=== PATIENT | female | born 1980 | race Caucasian/White ===

== ENCOUNTER 2017-03-18 15:09 | Observation (INO) | payer BC ==
--- NOTE | ~2017-03-18 | HP ---
History And Physical [place] [id number] [facility] [place]. [address] NAME: AUSTIN PATE : 78 STATUS : ADM Julisa PAT#: [id number] AGE: 36 ADM/REG DATE : 03/18/17 MR#: [id number] REPORT SERV DATE: 03/19/17 DICTATED BY: RUBY ELIZABETH II DATE: 03/18/17 REPORT STATUS : Draft TRANSCRIBED BY: MODL DATE: 03/18/17 DATE OF ADMISSION: 03/18/2017 CHIEF COMPLAINT: Bradycardia and hypotension prior to surgery and mild hypoxia. HISTORY OF PRESENT ILLNESS: The patient is a 36-year-old female with a history of PCOS, morbid obesity, hypertension, hyperlipidemia, and fibromyalgia who originally presented to [facility] for what sounds like a shoulder surgery. She was going under induction and intubated, when she was set up for positioning and her heart rate dropped and became hypotensive, so the surgery was aborted. Her heart rate and blood pressure quickly resumed to within normal limits, but she was brought to the ER. In the ER, she recovered well, however, was noted to be about 89% on room air. A chest x-ray only showed significantly elevated right hemidiaphragm with shallow inspiration and adjacent atelectasis. She was complaining of some shortness of breath and so a CTA was done, which showed right lower lobe atelectasis related to small lung volumes and right diaphragmatic eventration. No pulmonary embolism. The Hospitalist Service was consulted for observation. Currently, the patient is difficult to arouse, but she just received some Ativan and her at bedside saying that she had, otherwise, been doing well without any complaints. REVIEW OF SYSTEMS: Otherwise, unobtainable due to sedated state. PAST MEDICAL HISTORY: 1. Polycystic ovarian syndrome. 2. Hypertension. 3. Hyperlipidemia. 4. Morbid obesity. 5. Fibromyalgia. 6. Chronic migraines. 7. Suprascapular neuropathy. PAST SURGICAL HISTORY: Left knee surgery, recently; lumbar fusion, 05/22/2014. SOCIAL HISTORY: Denies any alcohol, tobacco, or drug use. She is and lives with her . FAMILY HISTORY: Hypertension in her mother, otherwise, unremarkable. HOME MEDICATIONS: Klonopin, hydrocodone, hyoscyamine, Synthroid, Lyrica, metformin, methocarbamol, Zofran, Pristiq, ProAir, and valsartan. PHYSICAL EXAMINATION: VITAL SIGNS: Blood pressure 119/72, temperature 98.2, pulse 82, O2 saturation 98% on 2 liters, and respirations 15. GENERAL: The patient is somnolent, fairly sedated, difficult to arouse, in no acute History And Physical [address] [address] NAME: AUSTIN PATE : 78 STATUS : ADM Julisa PAT#: [id number] AGE: 36 ADM/REG DATE : 03/18/17 MR#: [id number] REPORT SERV DATE: 03/19/17 DICTATED BY: RUBY ELIZABETH II DATE: 03/18/17 REPORT STATUS : Draft TRANSCRIBED BY: DAYAMI DATE: 03/18/17 distress. NECK: Neck is supple and nontender. No lymphadenopathy or thyromegaly. HEENT: Moist mucous membranes. Pupils are equal, round, and reactive to light. Conjunctivae are clear. RESPIRATORY: Lungs are clear to auscultation bilaterally. No wheezes, rhonchi, or rales. CARDIOVASCULAR: Regular rate and rhythm. No murmurs, rubs, or gallops. ABDOMEN: Soft, nontender, and nondistended. Normoactive bowel sounds. EXTREMITIES: No cyanosis, clubbing, or edema. SKIN: No lesions, rashes, or wounds. NEUROLOGIC: No focal deficits. LABORATORY DATA: 1. WBC 7.2, hemoglobin 11.9, and platelets 147. INR 1. Sodium 142, potassium 3.8, chloride 108, CO2 of 28, BUN 7, creatinine 0.64, glucose 134, and calcium 8.9. Troponin was 0.02. Magnesium 2.1. 2. Urinalysis: Moderate leukocyte esterase, 11 wbc's, 2 . RADIOGRAPHIC DATA: 1. Chest x-ray with shallow inspiration with elevation of the right hemidiaphragm and adjacent atelectasis. 2. CTA shows no pulmonary embolism. Right lower lobe atelectasis, possibly related to small lung volumes and right diaphragmatic eventration. ASSESSMENT AND PLAN: The patient is a 36-year-old female with: 1. Bradycardia and hypotension preoperative during intubation, likely related to either vagaling from endotracheal intubation or anesthesia, which quickly resolved and currently vitals are normal. We will monitor on tele. 2. Mild hypoxemia secondary to her elevated hemidiaphragm, atelectasis, and possibly mild sedation with Ativan. Her O2 saturations only dropped down to 89%, but have been asked to observe the patient overnight and provide supplemental oxygen and wean as her shoulder block wears off hopefully relieving the hemidiaphragm. We will hold other sedating agents. 3. For her polycystic ovarian syndrome, obesity, fibromyalgia, hypertension, we will resume her home medications. The patient is a full code. 4. Deep venous thrombosis prophylaxis with Lovenox. GALEG/ZEESHANL Ruby Elizabeth II, MD / [id number] CC: Amy Darnell M.D.
--- NOTE | ~2017-03-18 | DS ---
Discharge Summary [place] [id number] [place]. [address] NAME: AUSTIN PATE : 78 STATUS : DIS Julisa PAT#: [id number] AGE: 36 ADM/REG DATE : 03/18/17 MR#: [id number] REPORT SERV DATE: 03/20/17 DICTATED BY: RUBY JAIN II DATE: 03/19/17 REPORT STATUS : Draft TRANSCRIBED BY: MODL DATE: 03/19/17 ADMISSION DATE: 03/18/2017 DISCHARGE DATE: 03/19/2017 DISCHARGE DIAGNOSES: 1. Reported bradycardia and hypotension prior to surgery. 2. Mild hypoxemia secondary to elevated hemidiaphragm causing atelectasis. 3. Chronic right shoulder nerve entrapment with aborted surgery secondary to above. 4. History of polycystic ovary syndrome. 5. History of obesity. 6. History of fibromyalgia. 7. History of hypertension. 8. History of hyperlipidemia. BRIEF HISTORY OF PRESENT ILLNESS: The patient is a 36-year-old female with the above history, who presented to [facility] originally for surgery on her right shoulder, but experienced transient bradycardia and hypotension after being intubated. For detailed history and physical examination, please see my note from 03/18/2017. HOSPITAL COURSE: After admission, the patient was observed overnight and currently ambulating and 95% on room air with no other complaints. Her arm is starting to reawaken from anesthesia and no other complaints. The patient will be discharged to home in stable condition to resume her home medicines and follow up with Ortho. DISCHARGE MEDICATIONS: 1. Melvern 10/325 mg p.o. four times a day. 2. Synthroid 50 mcg p.o. daily. 3. Pregabalin 150 mg p.o. daily. 4. Lyrica 150 mg p.o. t.i.d. 5. Diovan 160 mg p.o. daily. 6. Symax 0.125 mg p.o. four times a day p.r.n. stomach pain. 7. Metformin 500 mg p.o. b.i.d. 8. Robaxin 750 mg p.o. four times a day p.r.n. 9. Zofran p.r.n. 10.Pristiq 50 mg p.o. daily. 11.ProAir one puff inhaled q.4 hours p.r.n. DISCHARGE INSTRUCTIONS: The patient will follow up with Ortho for rescheduling surgery. DICTATED BY: MD FAVIOLA Mancini II/DAYAMI Discharge Summary [place] [address] [place]. [address] NAME: AUSTIN PATE : 78 STATUS : DIS Julisa PAT#: [id number] AGE: 36 ADM/REG DATE : 03/18/17 MR#: [id number] REPORT SERV DATE: 03/20/17 DICTATED BY: RUBY JAIN II DATE: 03/19/17 REPORT STATUS : Draft TRANSCRIBED BY: DAYAMI DATE: 03/19/17 Ruby Jain II, MD / [id number] CC: Michel Lorenzana M.D.
[2017-03-18 13:23] LABS: BASOPHILS 0.3 %; BASOPHILS ABSOLUTE 0.02 10/3/uL (0.0-0.16); EOSINOPHILS 0.4 %; EOSINOPHILS ABSOLUTE 0.03 10/3/uL (0.0-0.53); HEMATOCRIT 36.8 % (36.0-48.0); HEMOGLOBIN 11.9 g/dL (12.0-16.0); IMMATURE GRANULOCYTES 0.4 %; IMMATURE GRANULOCYTES ABSOLUTE 0.03 10/3/uL (0.0-0.11); LYMPHOCYTES 14.5 %; LYMPHOCYTES ABSOLUTE 1.04 10/3/uL (0.67-4.30); MEAN CORPUS HGB CONC 32.3 g/dL (32.0-36.0); MEAN CORPUSCULAR HEMOGLOB 28.6 pg (26.0-34.0); MEAN CORPUSCULAR VOLUME 88.5 fL (80-100); MEAN PLATELET VOLUME 12.2 fL (9.2-13.0); MONOCYTES 1.4 %; NEUTROPHILS ABSOLUTE 5.95 10/3/uL (2.02-8.40); PLATELET COUNT 147 10/3/uL (150-400); RBC DISTRIBUTION WIDTH 12.9 % (12.0-16.0); RED CELL COUNT 4.16 10/6/uL (4.0-5.6); WHITE BLOOD CELLS 7.2 10/3/uL (4.5-10.5)
[2017-03-18 13:25] LABS: MANUAL DIFF NO %
[2017-03-18 13:30] LABS: PARTIAL THROMBO TIME 28.2 SEC (22.5-37.2); PROTIME (NOT ORD) 13.4 SEC (12.0-14.5)
[2017-03-18 13:39] LABS: BUN (BLOOD UREA NITROGEN) 7 MG/DL (6-23); CALCIUM, SERUM 8.9 MG/DL (8.5-10.4); CHEST PAIN PROFILE TAT 0 Hrs 22 Mins; CHLORIDE, SERUM 108 MMOL/L (96-112); CO2 (CARBON DIOXIDE) 28 MMOL/L (24-34); CREATININE 0.64 MG/DL (0.55-1.02); GFR AFRICAN AMERICAN 132 ML/MIN (>=60); GFR NON AFRICAN AMERICAN 114 ML/MIN (>=60); GLUCOSE, SERUM 164 MG/DL (60-99); POTASSIUM, SERUM 3.8 MMOL/L (3.5-5.3); SODIUM, SERUM 142 MMOL/L (135-148); TROPONIN I <0.02 NG/ML (<0.05)
[2017-03-18 13:42] LABS: ASCORBIC ACID (UR NOT ORDER) NEG (NEG); BILIRUBIN, URINE NEGATIVE (NEG); ER URINALYSIS TAT 0 Hrs 25 Mins; KETONE, URINE NEGATIVE (NEG); LEUKOCYTE ESTERASE(NOT OR MOD (NEG); NITRITE (URINE) NEG (NEG); WBC (NOT ORDERED) (RFLEX) 11 (0-5)
[2017-03-18] MEDS ORDERED: SYMAX-SL0.125 MG PO (18:16)
[2017-03-18] MEDS ORDERED: NORCO1 TAB PO (18:16)
[2017-03-18] MEDS ORDERED: LEVOTHYROXIN50 MCG PO (18:16)
[2017-03-18] MEDS ORDERED: LYRICA150 MG PO ×2 (18:17)
[2017-03-18] MEDS ORDERED: GLUCPH PO (18:17)
[2017-03-18] MEDS ORDERED: METHOC750B PO (18:17)
[2017-03-18] MEDS ORDERED: ZOFRAN ODT4 MG SL (18:17)
[2017-03-18] MEDS ORDERED: ZOFRAN8 PO (18:18)
[2017-03-18] MEDS ORDERED: PROAIR HFA INH (18:18)
[2017-03-18] MEDS ORDERED: DIOV160 PO (18:18)
[2017-03-18] MEDS ORDERED: PRISTIQ50 MG PO (18:18)
[2017-03-25] MEDS ORDERED: VITAMIN D31000 UNIT PO (09:48)
[2017-03-25] MEDS ORDERED: CLARIT10 PO (09:51)
[2017-03-25] MEDS ORDERED: KLONO5 PO (09:55)
== END 2017-03-19 09:15 | disposition home or self-care (01) ==
LOC: ER 15:09 → CDU1 18:14 → CDU2 19:19
PROVIDERS: Physician Assistant
DX: R00.1 Bradycardia, unspecified (principal); I95.9 Hypotension, unspecified; R09.02 Hypoxemia; G58.8 Other specified mononeuropathies; Z53.09 Procedure and treatment not carried out because of other contraindication; I10 Essential (primary) hypertension; E28.2 Polycystic ovarian syndrome; E78.5 Hyperlipidemia, unspecified; E66.01 Morbid (severe) obesity due to excess calories; G43.909 Migraine, unspecified, not intractable, without status migrainosus; G54.0 Brachial plexus disorders; M79.7 Fibromyalgia; Z98.890 Other specified postprocedural states; Z98.1 Arthrodesis status; Z82.49 Family history of ischemic heart disease and other diseases of the circulatory system; Z88.6 Allergy status to analgesic agent; Z91.040 Latex allergy status; Z79.84 Long term (current) use of oral hypoglycemic drugs; Z79.899 Other long term (current) drug therapy
CPT/HCPCS: 71010; 71275; 80048; 81001; 82962; 83735; 84484; 85025; 85610; 85730; 87086; 93005; 96372; 96374; 99285; A9270-GY; G0378; Q9967

== ENCOUNTER 2017-03-28 05:53 | Day surgery (SDC) | payer BC ==
[2017-03-25 09:46] LABS: BUN (BLOOD UREA NITROGEN) 7 MG/DL (6-23); CALCIUM, SERUM 9.1 MG/DL (8.5-10.4); CHLORIDE, SERUM 108 MMOL/L (96-112); CO2 (CARBON DIOXIDE) 27 MMOL/L (24-34); GFR AFRICAN AMERICAN 128 ML/MIN (>=60); GFR NON AFRICAN AMERICAN 111 ML/MIN (>=60); GLUCOSE, SERUM 138 MG/DL (60-99); POTASSIUM, SERUM 4.2 MMOL/L (3.5-5.3); SODIUM, SERUM 141 MMOL/L (135-148)
--- NOTE | ~2017-03-28 | OP ---
Record Of Operation [facility] [address] [place]. [address] NAME: AUSTIN PATE : 78 STATUS : [facility]#: [id number] AGE: 36 ADM/REG DATE : 03/28/17 MR#: [id number] REPORT SERV DATE: 03/28/17 DICTATED BY: TIMMY MADRIGAL DATE: 03/28/17 REPORT STATUS : Draft TRANSCRIBED BY: MODL DATE: 03/28/17 DATE OF PROCEDURE: 03/28/2017 PREOPERATIVE DIAGNOSES: Suprascapular neuropathy, biceps tendinitis. POSTOPERATIVE DIAGNOSES: Suprascapular neuropathy, biceps tendinitis. PROCEDURE: 1. Right suprascapular nerve release. 2. Biceps tenodesis. SURGEON: Timmy Mardigal M.D. COMPLICATIONS: None. ANESTHESIA: General endotracheal with regional block. INDICATIONS: This 36-year-old female has fibromyalgia and electromyographically documented suprascapular neuropathy. She also had clinical biceps tendinitis. She had failed nonoperative management, wished to proceed with operative intervention after discussion of above procedure. PROCEDURE IN DETAIL: The patient was induced in supine position. She was taken to the beach chair position with care to maintain the cervical lordosis. A time-out protocol was enforced. Ancef was administered. Posterolateral portals were created for diagnostic arthroscopy, which revealed normal cartilaginous surfaces, [id number] extra-articular lipstick type biceps tenosynovitis. Articular and bursal side of the cuff were normal. Labrum was negative. With 5.5 cannula was localized with an outside-in spinal technique, we released the biceps in order to retract. We then turned our attention to the suprascapular nerve. Suprascapular nerve release: We made two accessory lateral portals. We dissected over to the medial muscle belly of the supraspinatus. We placed the trans-trapezial portal and we were able to palpate the transverse scapular ligament. The suprascapular artery was going under the ligament with the nerve. We released that ligament under direct visualization and viewed it again through the trans-trapezial portal and documented complete freedom of the nerve. We then released the undersurface of the AC joint and debrided any synovitis on the AC joint. Biceps tenodesis: We then forward flexed, externally rotated. We released the biceps sheath and brought it out to length. We used a double loaded Lupron with left clever hooks and performed interlocking Guillermo-Vamshi sutures to tenodese the biceps in the groove. The remaining biceps was transected to remove. Scope was withdrawn. The portal was closed. Monocryl, Steri-Strips were applied. The patient tolerated the procedure well, sent to the [facility] [address] [address] NAME: AUSTIN PATE : 78 STATUS : [facility] PAT#: [id number] AGE: 36 ADM/REG DATE : 03/28/17 MR#: [id number] REPORT SERV DATE: 03/28/17 DICTATED BY: TIMMY MADRIGAL. DATE: 03/28/17 REPORT STATUS : Draft TRANSCRIBED BY: DAYAMI DATE: 03/28/17 PACU in stable condition. POSTOPERATIVE PLAN: Elbow range of motion only. Biceps protection for four weeks. BSS/MODL Timmy Madrigal M.D. / [id number] CC: Michel Chiang M.D.
[~2017-03-28 05:53] MED LIST: CLARIT10 PO; DIOV160 PO; GLUCPH PO; KLONO5 PO; LEVOTHYROXIN50 MCG PO; LYRICA150 MG PO; METHOC750B PO; NORCO1 TAB PO; PRISTIQ50 MG PO; PROAIR HFA INH; SYMAX-SL0.125 MG PO; VITAMIN D31000 UNIT PO; ZOFRAN ODT4 MG SL; ZOFRAN8 PO
== END 2017-03-28 14:57 | disposition home or self-care (01) ==
LOC: SDC 05:53
PROVIDERS: Orthopaedic Surgery Sports Medicine
PROC: 0LS30ZZ Reposition Right Upper Arm Tendon, Open Approach (ICD-10-PCS; principal; 2017-03-28 07:15)
DX: M75.21 Bicipital tendinitis, right shoulder (principal); G62.89 Other specified polyneuropathies; T75.3XXA Motion sickness, initial encounter; G47.33 Obstructive sleep apnea (adult) (pediatric); F41.9 Anxiety disorder, unspecified; E03.9 Hypothyroidism, unspecified; E78.00 Pure hypercholesterolemia, unspecified; F32.9 Major depressive disorder, single episode, unspecified; M79.7 Fibromyalgia; Z91.040 Latex allergy status; Z88.6 Allergy status to analgesic agent; Z79.899 Other long term (current) drug therapy; Z79.84 Long term (current) use of oral hypoglycemic drugs; Z79.82 Long term (current) use of aspirin; Z91.018 Allergy to other foods; G43.909 Migraine, unspecified, not intractable, without status migrainosus
CPT/HCPCS: 80048; 84703; 93005; A9270-GY; C1713; J0690; J1170; J2250; J2405; J2550; J2710; J3010